=== PATIENT | male | born 1975 | race Caucasian/White ===

== ENCOUNTER 2021-07-09 00:08 | Inpatient (IN) ==
[2021-07-09 05:12] LABS: Influenza A PCR Negative (Negative); Influenza B PCR Negative (Negative); Resp. Syncytial Virus PCR Negative (Negative)
[2021-07-09 05:13] LABS: SARS-CoV-2 by PCR (In House) Positive (Negative)
[2021-07-09] MEDS ORDERED: Naloxone 0.4 MG/ML INJ IVP PRN (06:03)
[2021-07-09] MEDS ORDERED: Acetaminophen 325 MG TABLET PO PRN (06:03)
[2021-07-09] MEDS ORDERED: Melatonin 3 MG TABLET PO PRN (06:03)
[2021-07-09] MEDS ORDERED: Ondansetron 4 MG/2 ML VIAL IVP PRN (06:03)
[2021-07-09] MEDS ORDERED: *HR* LORazepam 2 MG/ML VIAL IM ONE (08:30)
[2021-07-09] MEDS ORDERED: Haloperidol Lactate 5 MG/ML VIAL IM ONE (08:30)
[2021-07-09] MEDS ORDERED: *HR* LORazepam 2 MG/ML VIAL IVP PRN (09:36)
[2021-07-09] MEDS ORDERED: Haloperidol Lactate 5 MG/ML VIAL IVP PRN (09:36)
[2021-07-09] MEDS: Cholecalciferol (D-3) 1,000 UNIT (25MCG) TABLET PO SCH (11:06)
[2021-07-09] MEDS: Multivit/Ca/Min/Fe/FA 1 TAB TABLET PO SCH (11:06)
[2021-07-10 05:53] LABS: Hematocrit 40.4 % (37.5-50.1); Mean Corpuscular HGB Conc 32.2 g/dL (31.6-35.5); Mean Corpuscular Hemoglobin 30.6 pg (28.0-33.3); Mean Corpuscular Volume 95.1 fL (83.0-100.0); Mean Platelet Volume 10.1 fL (9.4-12.4); Platelet Count 251 K/mcL (140-400); Red Blood Count 4.25 M/mcL (4.19-5.50); Red Cell Distribution Width 12.2 % (11.5-14.5); White Blood Count 8.8 K/mcL (4.3-11.1)
[2021-07-10 06:02] LABS: Magnesium 2.4 mg/dL (1.6-2.6); Phosphorous 4.4 mg/dL (2.7-4.5)
[2021-07-10 06:45] LABS: BUN/Creatinine Ratio 9 (6-26); Blood Urea Nitrogen 10 mg/dL (6-20); Carbon Dioxide 28 mEq/L (23-29); Chloride 107 mEq/L (98-107); Glucose 108 mg/dL (70-105); Osmolality,Calculated 294 (280-300); Potassium 3.9 mEq/L (3.5-5.1); Sodium 142 mEq/L (136-145); eGFR For African Americans > 60 (> 60); eGFR For Non-African Americans > 60 (> 60)
[2021-07-10] MEDS: Cholecalciferol (D-3) 1,000 UNIT (25MCG) TABLET PO SCH (08:04)
[2021-07-10] MEDS: Lithium Carbonate 300 MG CAPSULE PO SCH ×2 (08:04→20:36)
[2021-07-10] MEDS: Multivit/Ca/Min/Fe/FA 1 TAB TABLET PO SCH (08:04)
[2021-07-10] MEDS: OLANZapine 5 MG TAB.RAPDIS PO SCH ×2 (08:04→15:37)
[2021-07-10] MEDS ORDERED: OLANZapine 5 MG TAB.RAPDIS PO PRN (19:17)
[2021-07-10] MEDS: OLANZapine 10 MG TAB.RAPDIS PO SCH (20:36)
[2021-07-11] MEDS: Cholecalciferol (D-3) 1,000 UNIT (25MCG) TABLET PO SCH (08:41)
[2021-07-11] MEDS: Multivit/Ca/Min/Fe/FA 1 TAB TABLET PO SCH (08:41)
[2021-07-11] MEDS: Lithium Carbonate 300 MG CAPSULE PO SCH ×2 (08:45→20:34)
[2021-07-11] MEDS ORDERED: *HR* LORazepam 2 MG/ML VIAL IM STA (12:21)
[2021-07-11] MEDS: OLANZapine 10 MG TAB.RAPDIS PO SCH (20:35)
[2021-07-11] MEDS: risperiDONE 1 MG TABLET PO SCH (20:35)
[2021-07-12] MEDS: Multivit/Ca/Min/Fe/FA 1 TAB TABLET PO SCH (08:06)
[2021-07-12] MEDS: Cholecalciferol (D-3) 1,000 UNIT (25MCG) TABLET PO SCH (08:06)
[2021-07-12] MEDS: Lithium Carbonate 300 MG CAPSULE PO SCH ×2 (08:06→21:04)
[2021-07-12 18:36] LABS: Basophils # 0.1 K/mcL (0.0-0.2); Basophils % 0.6 %; Eosinophils # 0.3 K/mcL (0.0-0.6); Eosinophils % 3.1 %; Hematocrit 45.3 % (37.5-50.1); Immature Granulocytes % 0.2 % (0-4); Lymphocytes % 37.3 %; Mean Corpuscular HGB Conc 33.8 g/dL (31.6-35.5); Mean Corpuscular Hemoglobin 32.1 pg (28.0-33.3); Mean Platelet Volume 10.1 fL (9.4-12.4); Monocytes # 0.7 K/mcL (0.0-1.3); Monocytes % 6.7 %; Neutrophils # 5.6 K/mcL (1.6-8.9); Platelet Count 305 K/mcL (140-400); Red Blood Count 4.77 M/mcL (4.19-5.50); Segmented Neutrophils % 52.1 %; White Blood Count 10.8 K/mcL (4.3-11.1)
[2021-07-12 18:41] LABS: Hemoglobin 15.3 g/dL (12.9-16.9)
[2021-07-12 18:56] LABS: Alanine Aminotransferase 32 Units/L (7-52); Albumin 4.5 g/dL (3.5-5.7); Albumin/Globulin Ratio 1.7 (1.1-2.2); Alkaline Phosphatase 53 Units/L (34-104); Aspartate Amino Transferase 22 Units/L (13-39); BUN/Creatinine Ratio 15 (6-26); Bilirubin,Total 0.3 mg/dL (0.3-1.0); Blood Urea Nitrogen 15 mg/dL (6-20); Carbon Dioxide 30 mEq/L (23-29); Chloride 103 mEq/L (98-107); Globulin 2.7 g/dL (2.4-3.5); Glucose 85 mg/dL (70-105); Osmolality,Calculated 288 (280-300); Potassium 4.1 mEq/L (3.5-5.1); Sodium 139 mEq/L (136-145); Total Protein 7.2 g/dL (6.4-8.9); eGFR For African Americans > 60 (> 60); eGFR For Non-African Americans > 60 (> 60)
[2021-07-12 19:09] LABS: Thyroid Stimulating Hormone 2.797 mcIU/mL (0.340-5.600)
[2021-07-12] MEDS: risperiDONE 1 MG TABLET PO SCH (21:04)
[2021-07-12] MEDS: OLANZapine 10 MG TAB.RAPDIS PO SCH (21:04)
[2021-07-13] MEDS: Lithium Carbonate 300 MG CAPSULE PO SCH ×3 (08:30→20:31)
[2021-07-13] MEDS: Cholecalciferol (D-3) 1,000 UNIT (25MCG) TABLET PO SCH (08:30)
[2021-07-13] MEDS: Multivit/Ca/Min/Fe/FA 1 TAB TABLET PO SCH (08:30)
[2021-07-13] MEDS: risperiDONE 1 MG TABLET PO SCH (20:30)
[2021-07-13] MEDS: OLANZapine 10 MG TAB.RAPDIS PO SCH (20:30)
[2021-07-14] MEDS: Lithium Carbonate 300 MG CAPSULE PO SCH ×3 (07:47→20:58)
[2021-07-14] MEDS: Cholecalciferol (D-3) 1,000 UNIT (25MCG) TABLET PO SCH (07:48)
[2021-07-14] MEDS: Multivit/Ca/Min/Fe/FA 1 TAB TABLET PO SCH (07:48)
[2021-07-14] MEDS: risperiDONE 1 MG TABLET PO SCH (20:58)
[2021-07-14] MEDS: OLANZapine 10 MG TAB.RAPDIS PO SCH (20:58)
[2021-07-15] MEDS: Cholecalciferol (D-3) 1,000 UNIT (25MCG) TABLET PO SCH (08:54)
[2021-07-15] MEDS: Lithium Carbonate 300 MG CAPSULE PO SCH ×3 (08:55→21:35)
[2021-07-15] MEDS: Multivit/Ca/Min/Fe/FA 1 TAB TABLET PO SCH (08:55)
[2021-07-15] MEDS: risperiDONE 1 MG TABLET PO SCH (21:35)
[2021-07-15] MEDS: OLANZapine 10 MG TAB.RAPDIS PO SCH (21:35)
[2021-07-16] MEDS: Multivit/Ca/Min/Fe/FA 1 TAB TABLET PO SCH (08:16)
[2021-07-16] MEDS: Cholecalciferol (D-3) 1,000 UNIT (25MCG) TABLET PO SCH (08:16)
[2021-07-16] MEDS: Lithium Carbonate 300 MG CAPSULE PO SCH ×2 (08:17→13:47)
[2021-07-16 08:26] VITALS: BP 132/71; PULSE 83; TEMP 97.7; O2SAT 99
[2021-07-16 09:59] LABS: Adenovirus Not Detected (Not Detect); Bordetella Pertussis Not Detected (Not Detect); Chlamydophila pneumoniae Not Detected (Not Detect); Coronavirus 229E Not Detected (Not Detect); Coronavirus HKU1 Not Detected (Not Detect); Coronavirus NL63 Not Detected (Not Detect); Coronavirus OC43 Not Detected (Not Detect); Human Metapneumovirus Not Detected (Not Detect); Human Rhinovirus/Enterovirus Not Detected (Not Detect); Influenza A Subtype 2009 H1 Not Detected (Not Detect); Influenza B Not Detected (Not Detect); Mycoplasma pneumoniae Not Detected (Not Detect); Parainfluenza Virus 1 Not Detected (Not Detect); Parainfluenza Virus 2 Not Detected (Not Detect); Parainfluenza Virus 3 Not Detected (Not Detect); Parainfluenza Virus 4 Not Detected (Not Detect); Respiratory Syncytial Virus Not Detected (Not Detect); SARS-CoV-2 Not Detected (Not Detect)
[2021-07-16 11:59] LABS: Bilirubin,Urine Negative (Negative); Blood,Urine Negative (Negative); Clarity,Urine Clear (Clear); Color,Urine Colorless (Yellow); Glucose,Urine (UA) Normal (Normal); Ketones,Urine Negative (Negative); Leukocyte Esterase,Urine Negative (Negative); Nitrite,Urine Negative (Negative); PH,Urine 7.5 pH Units (5.0-8.0); Protein,Urine Negative (Neg-Trace); Specific Gravity,Urine 1.008 (1.010-1.025); Urobilinogen,Urine Normal (Normal)
[2021-07-16 12:06] LABS: Amphetamine Screen,Urine Negative ng/mL (Cutoff=1000); Barbiturate Screen,Urine Negative ng/mL (Cutoff=200); Benzodiazepines Screen,Urine Negative ng/mL (Cutoff=200); Cannabinoid Screen,Urine Negative ng/mL (Cutoff = 50); Cocaine Screen,Urine Negative ng/mL (Cutoff= 300); Opiate Screen,Urine Negative ng/mL (Cutoff=300); Phencyclidine Screen,Urine Negative ng/mL (Cutoff=25)
[2021-07-16] MEDS ORDERED: ChlorproMAZINE 25 MG/ML AMPUL IM PRN (15:02)
[2021-07-16] MEDS ORDERED: risperiDONE 1 MG TABLET PO SCH (21:00)
== END 2021-07-16 17:11 | DRG 753 ==
LOC: 3BNU 00:08 → EMEROOARM 00:08 → SUATTDRO 07:57 → 3BNU 08:28
PROVIDERS: ADMIT Internal Medicine; ATTEND Internal Medicine